=== PATIENT | female | born 1985 | race Caucasian/White ===

== ENCOUNTER 2024-09-14 17:19 | Observation (INO) ==
--- NOTE | 2024-09-14 17:47 | Emergency Department Note ---
Impression & Plan Heart palpitations, Headache ED Provider Note HISTORY OF PRESENT ILLNESS: Patient is a 39-year-old female presenting with multiple complaints. Patient reports that today while laying flat she had the sensation that her heart was racing. Reports that her palpitations lasted for about 2 hours and then went away on its own. States that over the last 4 to 6 weeks she has been having a number of symptoms, including headaches, numbness in her left arm, excessive weight gain and excessive fatigue. Reports that the weight gain has been ongoing for the last year but notably worse in the last few months. States that she also has been having excessive amounts of hair loss in the last year, most notably in the last few months. States that she has gained over 20 pounds in the last year without any significant changes to diet or exercise regimen. She reports that her father and sister both have multiple sclerosis. Patient denies any excessive caffeine use or any changes to medications. She denies any recent travel. Denies any DVT or PE history. Denies any chest pain or shortness of breath. She reports that her headaches have become more frequent in the last 4 to 6 weeks. Describes it as a pressure-like sensation and states that she takes [id number] Excedrin with minimal relief in symptoms. Denies any changes in vision, such as double or blurry vision. Denies any notable rashes. ROS: as above PHYSICAL EXAM: Constitutional: Patient appears in no acute distress. Tearful on examination HENT: Head: Normocephalic and atraumatic. Eyes: EOMI, PERRL Mouth/Throat: Mucous membranes moist. Neck: Trachea midline. Neck supple. Cardiovascular: RRR, No murmurs, rubs or gallops. Intact distal pulses. Pulmonary/Chest: No respiratory distress. Breath sounds clear and equal bilaterally. No wheezes or rales. Abdominal: Abdomen soft, no tenderness, rebound or guarding. Musculoskeletal: No edema, tenderness or deformity noted. Skin: Warm and dry. No rash, erythema, pallor or cyanosis Psychiatric: Appropriate mood and affect for situation. Neurological: Alert and keenly responsive. CN II-XII grossly intact, moving all extremities equally and fully. MDM: - Vitals signs stable. - History obtained via patient. History as above. - Chronic conditions affecting care: Depression with anxiety - Differential diagnoses include, but are not limited to: Multiple sclerosis; electrolyte abnormality; ACS; dysrhythmia; paresthesias - Order placed for continuous cardiac monitoring. At this time, monitor showed rate of 80 bpm with normal sinus rhythm, per my interpretation. - External medical records reviewed. - EKG image interpreted by myself showed normal sinus rhythm. Rate 83 bpm. QT 382. No acute ischemic changes. - Laboratory workup interpreted by myself showed normal WBC; normal PT/INR; normal D-dimer; stable electrolytes; normal troponin; normal lipase; normal TSH; negative hCG; negative Lyme/anaplasmosis/Babesia testing - CT head wo contrast negative for acute pathology - CXR image reviewed by myself is negative for pneumonia, per my interpretation. - MRI brain w/wo contrast was obtained, given patient's headache symptoms and intermittent left upper extremity numbness and family history of multiple sclerosis. MRI brain w/wo contrast showed no acute infarctions or hematomas. Noted to have "altered deep white matter signals with anatomical distribution imaging features concerning for potential multiple sclerosis." - Discussion was had with showcase trimmer about patient's case and need for admission - Hospitalist, Dr. Floyd, consulted for admission - [facility] ASSESSMENT AND PLAN: Diagnosis: Palpitations; headaches Plan: Admit Past Med/Surg History Problem List (Updated 09/14/24 @ 22:54 by Anette Farris MD) Headache (Acute) Heart palpitations (Acute) Breast pain Depression with anxiety Medical History Preeclampsia at 31 weeks Atypical squamous cells of undetermined significance (ASC-US) on cervical Pap smear 08/2020 Gestational diabetes Anorexia Surgical History S/P section di/di twin History of colposcopy 08/2020 S/P wisdom tooth extraction Family History Aunt Breast cancer Father Multiple sclerosis Other Dyslipidemia Hypertension Osteoporosis Social History Smoking Status: Never smoker Do You Dip or Chew Tobacco: No; Hx Alcohol Use: No Hx Substance Use: No Preferred Language: Persian marital status: marital status details: Shahriar (36) [phone] Current Living Situation: Spouse Current Living Situation Comment: lives with spouse, no pets current occupational status: employed 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 Feels Safe at Home: Yes Allergies Allergies Allergy/AdvReac Type Severity Reaction Status Date / Time No Known Allergies Allergy Verified 09/14/24 19:20 Home Meds Home Medications Medication Instructions Recorded Confirmed metoprolol succinate 50 mg 50 mg PO DAILY 09/17/20 09/14/24 tablet,extended release 24 hr trazodone 150 mg tablet 150 mg PO DAILY 11/07/21 09/14/24 minoxidil 2.5 mg tablet 1.25 mg PO DAILY 10/30/23 09/14/24 sertraline 100 mg tablet (Zoloft) 250 mg PO DAILY 10/30/23 09/14/24 bupropion HCl 150 mg 24 hr tablet, 150 mg PO QPM 09/14/24 09/14/24 extended release lisinopril 5 mg tablet 5 mg PO DAILY 09/14/24 09/14/24 multivitamin 1 tab PO DAILY 09/14/24 09/14/24 Previous Rx's Medication Instructions Recorded acetone (urine) test (Ketostix #100 ea 04/05/20 strips) drospirenone (contraceptive) 4 mg 1 tab PO DAILY #84 tabs 11/16/23 (28) tablet (Slynd) Results & Data (ED) Vital Signs Vital Signs - 24 hr 09/14/24 17:21 09/14/24 18:01 09/14/24 19:24 Temperature 36.6 C Temperature Source Temporal Artery Scan Pulse Rate 87 85 Pulse Rate [Apical] 80 Respiratory Rate 18 18 Respiratory Effort / Characteristics Non-Labored Spontaneous Respiratory Depth Normal Blood Pressure 125/77 Blood Pressure [Right Arm] 116/73 Blood Pressure Mean 93 Blood Pressure Mean [Right Arm] 87 Blood Pressure Position Sitting Pulse Oximetry 98 95 Oxygen Delivery Method Room Air Room Air Sepsis Recent Fever Within 48 Hours No Sepsis New/Unexplained Change in Mental Status No Sepsis Action Taken by Nursing No Action Required 09/14/24 21:00 Temperature Temperature Source Pulse Rate Pulse Rate [Apical] 80 Respiratory Rate 18 Respiratory Effort / Characteristics Respiratory Depth Blood Pressure Blood Pressure [Right Arm] 128/83 Blood Pressure Mean Blood Pressure Mean [Right Arm] 98 Blood Pressure Position Pulse Oximetry 97 Oxygen Delivery Method Sepsis Recent Fever Within 48 Hours Sepsis New/Unexplained Change in Mental Status Sepsis Action Taken by Nursing Laboratory Data 09/14/24 17:37 09/14/24 17:37 Lab Results 09/14/24 Range/Units 17:37 WBC 7.70 (4.8-10.8) K/ul RBC 4.00 L (4.20-5.40) M/uL Hgb 12.3 (12.0-16.0) g/dl Hct 35.1 L (37.0-47.0) % MCV 87.8 (80.0-100.0) fL MCH 30.8 (25.0-34.0) pg MCHC 35.0 (32.0-36.0) g/dL RDW Std Deviation 38.2 (36.4-46.3) fL RDW Coeff of Bruce 11.8 (11.5-14.5) % Plt Count 200 (130-400) K/uL MPV 9.6 (9.4-12.4) fL Immature Gran % (Auto) 0.3 % Neut % (Auto) 69.2 % Lymph % (Auto) 23.5 % Grant % (Auto) 5.7 % Eos % (Auto) 0.8 % Baso % (Auto) 0.5 % Neut # (Auto) 5.33 (1.40-6.50) K/uL Lymph # (Auto) 1.81 (1.20-3.40) K/uL Grant # (Auto) 0.44 (0.11-0.59) K/uL Eos # (Auto) 0.06 (0.00-0.50) K/uL Baso # (Auto) 0.04 (0.00-0.20) K/uL Immature Gran # (Auto) 0.02 (0.01-0.20) K/uL PT 10.0 (9.0-12.0) Seconds INR 0.9 (0.9-1.1) D-Dimer 390 (0-500) ug/L FEU Sodium 137 (136-145) mmol/L Potassium 4.1 (3.5-5.1) mmol/L Chloride 105 (98-107) mmol/L Carbon Dioxide 25 (21-32) mmol/L Anion Gap 7 (3-11) BUN 16 (6-23) mg/dl Creatinine 1.06 (0.6-1.2) mg/dl Est Cr Clr Drug Dosing 82.6 ml/min eGFR 68.11 BUN/Creatinine Ratio 15.1 (10-20) Glucose 146 H (70-99(Fasting)) mg/dl Calcium 9.4 (8.6-10.3) mg/dl Magnesium 2.0 (1.7-2.4) mg/dl Total Bilirubin 0.2 (0.2-1.0) mg/dl AST 17 (13-39) U/L ALT 22 (7-52) U/L Alkaline Phosphatase 74 (34-104) U/L Troponin I High Sens < 2.3 (0-14) pg/ml Total Protein 7.6 (6.0-8.3) gm/dl Albumin 4.3 (3.4-5.0) gm/dl Globulin 3.3 (2.5-4.0) gm/dl Albumin/Globulin Ratio 1.3 (0.9-2) Lipase 37 (11-82) U/L TSH 0.981 (0.300-4.500) uIu/ml HCG, Qual Negative (Negative) Anaplasma Smear See Comment Babesia Smear See Comment Lyme Disease Screen Negative (Negative) Administered Medications Discontinued Medications Gadobutrol (Gadobutrol 65ml Vial) 9.2 ml IV ONCE ONE Stop: 09/14/24 18:58 Last Admin: 09/14/24 18:58 Dose: 9.2 ml Documented By: GILSON Lorazepam (Lorazepam 2 Mg/1 Ml Vial) 0.5 mg IV NOW STA Stop: 09/14/24 18:18 Last Admin: 09/14/24 18:24 Dose: 0.5 mg Documented By: ARTEMIO Imaging Data Radiologist's Impression: Chest X-Ray 09/14/24 17:27 Clinical History: Palpitations Technique: A frontal view of the chest was obtained Comparison is made to the prior examination dated 01/29/2017 Findings: There are no confluent pulmonary infiltrates. The heart size is within normal limits. No pleural effusion or pneumothorax is seen. There is no definite pulmonary nodule. No fracture is noted. No foreign body is seen Impression: No active disease Electronically signed by Zi Connors 09-14-2024 6:59 PM Brain MRI 06/18/25 17:43 EXAM: MR brain wo/w con CLINICAL HISTORY: Headaches; Left arm numbness; history of MS. TECHNIQUE: Different pulse sequences were performed in different planes without and with GD-DTPA injection for the brain. 9.2 mL Gadavist was injected intravenously without complications. Images were sent through PACs for interpretation. COMPARISON: CT brain dated 09/14/2024 FINDINGS: No hyperacute or acute infarctions could be detected. Focal deep white matter, signal alterations are seen at the left forceps minor, right, periventricular, and forceps major regions, exhibiting bright signals on T2 and FLAIR WI. Intermediate signals on T1 WI. No appreciable enhancement after Gd-DTPA injection. Normal MRI appearance of the cerebellar parenchymal signals. Normal MRI appearance of the central granado matter aggregates. Normal size and configuration of the cerebral ventricles. Normal MRI appearance of different anatomical parts of the brain stem, namely the midbrain, jennifer, and medulla oblongata. Normal MRI appearance of the petrous temporal bones, brainstem, vestibule cochlear nerves, and cerebellopontine angles with no definite masses. No shift of midline structures. No intracerebral or extra-axial hematomas or masses. Normal MRI appearance of orbital structures, both globes, optic nerves, optic chiasm, optic tracts, and optic radiations. Retention cysts are seen at the maxillary antra. Other paranasal sinuses are clear. Hypertrophic nasal turbinates. IMPRESSION: 1. No hyperacute or acute infarctions could be depicted. 2. No intracerebral or extracerebral hematoma. 3. Altered deep white matter signals with anatomical distribution and imaging features may match the given clinical status of multiple sclerosis. Comparison with the prior scans is recommended for proper monitoring of the disease process. 4. CT is insensitive to mild, demyelinating disease. The comparison matches the CT findings. Electronically signed by Lorne Rose 09-14-2024 8:[address] 09/14/24 17:43 Clinical History: Headache and left arm numbness. Technique: Axial computed tomography images were obtained of the brain from the vertex to the skull base without intravenous contrast. Findings: There is no sign of intracranial hemorrhage. There is normal granado-white matter differentiation with no sign of acute or old infarction. No midline shift or other form of herniation is identified. There is no hydrocephalus. No obvious mass lesion is seen on this noncontrast examination. The visualized portions of the orbits and paranasal sinuses appear unremarkable. The mastoid air cells appear clear Impression: Unremarkable noncontrast CT of the brain Electronically signed by Zi Connors 09-14-2024 7:28 PM Discharge Plan Visit Data Chief Complaint: Tachycardia Stated Complaint: TACHYCARDIA, SOME TINGLING OF LIMBS AND HEADACHE ED Provider: Anette Farris Discharge Problem: Heart palpitations, Headache Condition: Fair Forms Stand Alone Forms: My [facility] Prescriptions Prescriptions: No Action metoprolol succinate 50 mg tablet extended release 24 hr 50 mg PO DAILY trazodone 150 mg tablet 150 mg PO DAILY (DME) Ketostix Strip See Rx Instructions .ROUTE .MEDSUPPLY Qty: 100 2RF Rx Instructions: Check each morning Slynd 4 mg (28) tablet 1 tab PO DAILY Qty: 84 3RF sertraline [Zoloft] 100 mg tablet 250 mg PO DAILY minoxidil 2.5 mg tablet 1.25 mg PO DAILY multivitamin Tablet 1 tab PO DAILY lisinopril 5 mg tablet 5 mg PO DAILY bupropion HCl 150 mg tablet extended release 24 hr 150 mg PO QPM Referrals Referrals: Roxann Zhou CRNP [Primary Care Provider] -
[2024-09-14 17:51] LABS: Basophils # (auto) 0.04 K/uL (0.00-0.20); Basophils % (auto) 0.5 %; Eosinophils # (auto) 0.06 K/uL (0.00-0.50); Eosinophils % (auto) 0.8 %; Hematocrit (blood only) 35.1 % (37.0-47.0); Hemoglobin 12.3 g/dl (12.0-16.0); Immature Granulocytes # (auto) 0.02 K/uL (0.01-0.20); Immature Granulocytes % (auto) 0.3 %; Lymphocytes # (auto) 1.81 K/uL (1.20-3.40); Lymphocytes % (auto) 23.5 %; Mean Corpuscular Hemoglobin 30.8 pg (25.0-34.0); Mean Corpuscular Volume 87.8 fL (80.0-100.0); Mean Platelet Volume 9.6 fL (9.4-12.4); Monocytes # (auto) 0.44 K/uL (0.11-0.59); Monocytes % (auto) 5.7 %; Neutrophils # (auto) 5.33 K/uL (1.40-6.50); Neutrophils % (auto) 69.2 %; Platelet Count 200 K/uL (130-400); RDW Coefficient of Variation 11.8 % (11.5-14.5); RDW Standard Deviation 38.2 fL (36.4-46.3)
[2024-09-14 18:06] LABS: Alanine Aminotransferase 22 U/L (7-52); Albumin Globulin Ratio 1.3 (0.9-2); Albumin Level 4.3 gm/dl (3.4-5.0); Alkaline Phosphatase 74 U/L (34-104); Anion Gap 7 (3-11); Aspartate Aminotransferase 17 U/L (13-39); BUN Creatinine Ratio 15.1 (10-20); Bilirubin,Total 0.2 mg/dl (0.2-1.0); Blood Urea Nitrogen 16 mg/dl (6-23); Calcium 9.4 mg/dl (8.6-10.3); Carbon Dioxide 25 mmol/L (21-32); Chloride 105 mmol/L (98-107); Creatinine Clr Calc Pharmacy 82.6 ml/min; Globulin 3.3 gm/dl (2.5-4.0); Glucose 146 mg/dl (70-99(Fasting)); Lipase 37 U/L (11-82); Potassium 4.1 mmol/L (3.5-5.1); Sodium 137 mmol/L (136-145); Total Protein 7.6 gm/dl (6.0-8.3)
[2024-09-14 18:11] LABS: Pregnancy Test, Serum Negative (Negative)
[2024-09-14 18:15] LABS: Troponin I High Sensitivity < 2.3 pg/ml (0-14)
[2024-09-14 18:18] LABS: D Dimer 390 ug/L FEU (0-500); INR 0.9 (0.9-1.1)
[2024-09-14 18:21] LABS: Thyroid Stimulating Hormone 0.981 uIu/ml (0.300-4.500)
[2024-09-14] MEDS: LORazepam 2 MG/1 ML VIAL IV STA (18:24)
[2024-09-14] MEDS: GADOBUTROL 65ML VIAL IV ONE (18:58)
--- NOTE | 2024-09-14 18:59 | XRay Report ---
Clinical History: Palpitations Technique: A frontal view of the chest was obtained Comparison is made to the prior examination dated 01/29/2017 Findings: There are no confluent pulmonary infiltrates. The heart size is within normal limits. No pleural effusion or pneumothorax is seen. There is no definite pulmonary nodule. No fracture is noted. No foreign body is seen Impression: No active disease Electronically signed by Zi Connors 09-14-2024 6:59 PM
--- NOTE | 2024-09-14 19:29 | CT Scan Report ---
Clinical History: Headache and left arm numbness. Technique: Axial computed tomography images were obtained of the brain from the vertex to the skull base without intravenous contrast. Findings: There is no sign of intracranial hemorrhage. There is normal granado-white matter differentiation with no sign of acute or old infarction. No midline shift or other form of herniation is identified. There is no hydrocephalus. No obvious mass lesion is seen on this noncontrast examination. The visualized portions of the orbits and paranasal sinuses appear unremarkable. The mastoid air cells appear clear Impression: Unremarkable noncontrast CT of the brain Electronically signed by Zi Connors 09-14-2024 7:28 PM
--- NOTE | 2024-09-14 20:09 | Magnetic Resonance Report ---
EXAM: MR brain wo/w con CLINICAL HISTORY: Headaches; Left arm numbness; history of MS. TECHNIQUE: Different pulse sequences were performed in different planes without and with GD-DTPA injection for the brain. 9.2 mL Gadavist was injected intravenously without complications. Images were sent through PACs for interpretation. COMPARISON: CT brain dated 09/14/2024 FINDINGS: No hyperacute or acute infarctions could be detected. Focal deep white matter, signal alterations are seen at the left forceps minor, right, periventricular, and forceps major regions, exhibiting bright signals on T2 and FLAIR WI. Intermediate signals on T1 WI. No appreciable enhancement after Gd-DTPA injection. Normal MRI appearance of the cerebellar parenchymal signals. Normal MRI appearance of the central granado matter aggregates. Normal size and configuration of the cerebral ventricles. Normal MRI appearance of different anatomical parts of the brain stem, namely the midbrain, jennifer, and medulla oblongata. Normal MRI appearance of the petrous temporal bones, brainstem, vestibule cochlear nerves, and cerebellopontine angles with no definite masses. No shift of midline structures. No intracerebral or extra-axial hematomas or masses. Normal MRI appearance of orbital structures, both globes, optic nerves, optic chiasm, optic tracts, and optic radiations. Retention cysts are seen at the maxillary antra. Other paranasal sinuses are clear. Hypertrophic nasal turbinates. IMPRESSION: 1. No hyperacute or acute infarctions could be depicted. 2. No intracerebral or extracerebral hematoma. 3. Altered deep white matter signals with anatomical distribution and imaging features may match the given clinical status of multiple sclerosis. Comparison with the prior scans is recommended for proper monitoring of the disease process. 4. CT is insensitive to mild, demyelinating disease. The comparison matches the CT findings. Electronically signed by Lorne Rose 09-14-2024 8:08 PM
--- NOTE | 2024-09-14 22:12 | History & Physical Report ---
Date of Service September 14, 2024 Assessment & Plan (1) Heart palpitations: (2) Headache: (3) Paresthesias: (4) cardiomyopathy: Plan This patient is a 39-year-old female with a history of cardiomyopathy, alopecia, depression/anxiety, remote history of anorexia, ge stational diabetes, and preeclampsia who presents to the ED with heart palpitations and a sensation of racing heartbeat that lasted 2 hours on the day of admission. This is in the context of some other more subacute to chronic symptoms over the last few months that include weight gain, significant fatigue, increasing frequency of tension headaches that have become almost daily over the last 6 weeks, and left upper extremity tingling mostly at night for the last 6 weeks. She also has noted some occasional mild chest pressure that comes on at rest and goes away on its own for the last 6 to 8 months that she thinks may be psychosomatic. With her headaches, they are only a 3/10 in severity, located in the frontal and temporal region, not associated with any nausea/vomiting or photophobia/phonophobia. She takes an Excedrin every couple of weeks for them but otherwise takes nothing for the headaches on a regular basis. Her only change in medication was that she was started on Slynd (progesterone only control pill) in 10/2023. She was seen by her PCP recently as an outpatient for the symptoms who thought she needed a sleep study to rule out BARBARA and was considering brain imaging given the increasing headaches and the left upper extremity tingling. The patient does have a strong family history in her father and 2 paternal aunts of MS and this is a concern of hers. She denies any visual changes. MRI of the brain performed in the ER interpreted as increased deep white matter signals which could be consistent with MS. She will be admitted for heart palpitations to assess for arrhythmia and repeat echocardiogram given history of cardiomyopathy which is now resolved. She will also be admitted for further evaluation by neurology to see if lumbar puncture warranted for further workup for MS and increased frequency of headaches. #Headaches/LUE numbness-headaches are tension headaches. No focal neurological deficits on exam and no papilledema noted on limited ophthalmic exam. CT head negative. MRI brain with/without contrast possible white matter changes consistent with MS. Her headaches I believe also could be related to changing to her progesterone only control pill but could also be tension headaches and weight gain. She has no neck pain and has paresthesias intermittently in the left upper extremity but no focal weakness. Could potentially have pseudotumor cerebri given gender, age, and obesity with daily headaches. Does have strong family history of MS although this typically is not hereditary. She does not have analgesia induced headaches or rebound headaches. Lyme titer negative, TSH normal - Tylenol as needed for headache -Check MRI cervical spine given left upper extremity paresthesias - Consult neurology for further assessment and to see if lumbar puncture warranted to further assess for MS and/or pseudotumor cerebri -Consider switching control to a different form to see if this helps relieve symptoms-discussed with gynecology outpatient - Check B12 level - Plans on getting outpatient sleep study to assess for BARBARA as a cause of her fatigue, headaches, weight gain #Heart palpitations/history of cardiomyopathy now resolved-occurred for 2 hours, unclear if related to ectopy or SVT. She does have a history of cardiomyopathy which was resolved on echo she thinks from 2 years prior. She follows with [facility] cardiology and remains on lisinopril and Toprol XL. She does not appear volume overloaded and blood pressures are controlled. TSH normal. CXR negative - Continue lisinopril, Toprol-XL - Check echo - Trend serial troponin - Monitor on telemetry for arrhythmia and asked nurse navigator to arrange 30- day cardiac event monitor through [facility] cardiology after discharge #Depression/anxiety/insomnia-no acute issues although she questions if some of her symptoms are psychosomatic - Continue home sertraline, bupropion, trazodone #Alopecia-she is on minoxidil for alopecia and not for hypertension - Continue minoxidil DVT prophylaxis-SCDs Disposition-bring in on observation for further neurological evaluation and echocardiogram, telemetry monitoring for arrhythmia, expect discharge on 09/15 most likely History of Present Illness Chief Complaint: Headache, heart palpitations, left arm numbness Primary Care Provider: GARRY Grajeda This patient is a 39-year-old female with a history of cardiomyopathy, alopecia, depression/anxiety, remote history of anorexia, gestational diabetes, and preeclampsia who presents to the ED with heart palpitations and a sensation of racing heartbeat that lasted 2 hours on the day of admission. This is in the context of some other more subacute to chronic symptoms over the last few months that include weight gain, significant fatigue, increasing frequency of tension headaches that have become almost daily over the last 6 weeks, and left upper extremity tingling mostly at night for the last 6 weeks. She also has noted some occasional mild chest pressure that comes on at rest and goes away on its own for the last 6 to 8 months that she thinks may be psychosomatic. With her headaches, they are only a 3/10 in severity, located in the frontal and temporal region, not associated with any nausea/vomiting or photophobia/phonophobia. She takes an Excedrin every couple of weeks for them but otherwise takes nothing for the headaches on a regular basis. Her only change in medication was that she was started on Slynd (progesterone only control pill) in 10/2023. She was seen by her PCP recently as an outpatient for the symptoms who thought she needed a sleep study to rule out BARBARA and was considering brain imaging given the increasing headaches and the left upper extremity tingling. The patient does have a strong family history in her father and 2 paternal aunts of MS and this is a concern of hers. She denies any visual changes. MRI of the brain performed in the ER interpreted as increased deep white matter signals which could be consistent with MS. She will be admitted for heart palpitations to assess for arrhythmia and repeat echocardiogram given history of cardiomyopathy which is now resolved. She will also be admitted for further evaluation by neurology to see if lumbar puncture warranted for further workup for MS and increased frequency of headaches. Allergies Allergy/AdvReac Type Severity Reaction Status Date / Time No Known Allergies Allergy Verified 09/14/24 19:20 Home Medications Medication Instructions Recorded Confirmed Type acetone (urine) test (Ketostix #100 ea 04/05/20 09/14/24 Rx strips) metoprolol succinate 50 mg 50 mg PO DAILY 09/17/20 09/14/24 History tablet,extended release 24 hr trazodone 150 mg tablet 150 mg PO DAILY 11/07/21 09/14/24 History minoxidil 2.5 mg tablet 1.25 mg PO DAILY 10/30/23 09/14/24 History sertraline 100 mg tablet (Zoloft) 250 mg PO DAILY 10/30/23 09/14/24 History drospirenone (contraceptive) 4 mg 1 tab PO DAILY #84 tabs 11/16/23 09/14/24 Rx (28) tablet (Slynd) bupropion HCl 150 mg 24 hr tablet, 150 mg PO QPM 09/14/24 09/14/24 History extended release lisinopril 5 mg tablet 5 mg PO DAILY 09/14/24 09/14/24 History multivitamin 1 tab PO DAILY 09/14/24 09/14/24 History Past Med/Surg History Problem List (Updated 09/15/24 @ 00:39 by Taryn Floyd MD) Paresthesias Headache (Acute) Heart palpitations (Acute) Breast pain Depression with anxiety Medical History Alopecia cardiomyopathy Preeclampsia at 31 weeks Atypical squamous cells of undetermined significance (ASC-US) on cervical Pap smear 08/2020 Gestational diabetes Anorexia Surgical History S/P section di/di twin History of colposcopy 08/2020 S/P wisdom tooth extraction Family History (Updated 09/15/24 @ 00:37 by Taryn Floyd MD) Aunt Breast cancer Multiple sclerosis Father Multiple sclerosis Brother Obsessive compulsive disorder Other Dyslipidemia Hypertension Osteoporosis Social History (Updated 09/15/24 @ 00:37 by Taryn Floyd MD) Smoking Status: Never smoker Do You Dip or Chew Tobacco: No; Hx Alcohol Use: Yes Alcohol Intake Frequency: Monthly or Less Hx Substance Use: No Preferred Language: Japanese marital status: marital status details: Shahriar (36) [phone] Current Living Situation: Spouse Current Living Situation Comment: lives with spouse, no pets current occupational status: employed 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, 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, 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 [employer] How many Children do You have: 2 How many Children do You have Comment: Twins Feels Safe at Home: Yes Review of Systems Review of Systems: All systems reviewed & are unremarkable except as noted in HPI & below Physical Exam Constitutional: WD/WN, vitals as above Eyes: PERRL, conjunctivae normal, anicteric sclerae no vascular abnormality, no optic disc abnormality, no anisocoria, no nystagmus and no papilledema ENMT: external ear and nose normal, oropharynx normal Neck: trachea midline, no thyromegaly Respiratory: normal respiratory effort, lungs clear to auscultation Cardiovascular: RRR, no murmur, no edema Chest (Breasts): Chest: normal inspection of chest Gastrointestinal (Abdomen): normal bowel sounds, soft, nontender, no hepatosplenomegaly Musculoskeletal: Extremities: extremities normal to inspection; no cyanosis and no clubbing Skin: no rashes, warm and dry Neurologic: normal touch/pain/proprioception (In upper and lower extremities bilaterally), CN's II-XI intact bilaterally, moves all extremities and awake; + abnormal deep tendon reflexes (1+ DTRs throughout upper and lower extremities bilaterally), no focal motor deficits, no meningeal signs and not confused Speech / Cognition: normal speech and normal cognition Motor/Sensory: no tremor and no sensory deficit Psychiatric: A+Ox3, euthymic affect Lymphatic: no lymphedema Results & Data Results & Data Vital Signs (Past 12 Hours) Vital Signs Temp Pulse Pulse Resp BP BP Pulse Ox 09/14/24 21:00 80 18 128/83 97 09/14/24 19:24 80 18 116/73 95 09/14/24 18:01 85 09/14/24 17:21 36.6 C 87 18 125/77 98 O2 Del Method 09/14/24 21:00 09/14/24 19:24 Room Air 09/14/24 18:01 09/14/24 17:21 Room Air Laboratory Results CBC, PT/INR, D-dimer, BMP, magnesium, LFTs, troponin, lipase, TSH, hCG, Anaplasma/Babesia smear, Lyme disease screen reviewed Diagnostic Findings CT head, brain MRI, chest x-ray reviewed: Chest X-Ray 09/14/24 17:27 Clinical History: Palpitations Technique: A frontal view of the chest was obtained Comparison is made to the prior examination dated 01/29/2017 Findings: There are no confluent pulmonary infiltrates. The heart size is within normal limits. No pleural effusion or pneumothorax is seen. There is no definite pulmonary nodule. No fracture is noted. No foreign body is seen Impression: No active disease Electronically signed by Zi Connors 09-14-2024 6:59 PM Brain MRI 09/14/24 17:43 EXAM: MR brain wo/w con CLINICAL HISTORY: Headaches; Left arm numbness; history of MS. TECHNIQUE: Different pulse sequences were performed in different planes without and with GD-DTPA injection for the brain. 9.2 mL Gadavist was injected intravenously without complications. Images were sent through PACs for interpretation. COMPARISON: CT brain dated 09/14/2024 FINDINGS: No hyperacute or acute infarctions could be detected. Focal deep white matter, signal alterations are seen at the left forceps minor, right, periventricular, and forceps major regions, exhibiting bright signals on T2 and FLAIR WI. Intermediate signals on T1 WI. No appreciable enhancement after Gd-DTPA injection. Normal MRI appearance of the cerebellar parenchymal signals. Normal MRI appearance of the central granado matter aggregates. Normal size and configuration of the cerebral ventricles. Normal MRI appearance of different anatomical parts of the brain stem, namely the midbrain, jennifer, and medulla oblongata. Normal MRI appearance of the petrous temporal bones, brainstem, vestibule cochlear nerves, and cerebellopontine angles with no definite masses. No shift of midline structures. No intracerebral or extra-axial hematomas or masses. Normal MRI appearance of orbital structures, both globes, optic nerves, optic chiasm, optic tracts, and optic radiations. Retention cysts are seen at the maxillary antra. Other paranasal sinuses are clear. Hypertrophic nasal turbinates. IMPRESSION: 1. No hyperacute or acute infarctions could be depicted. 2. No intracerebral or extracerebral hematoma. 3. Altered deep white matter signals with anatomical distribution and imaging features may match the given clinical status of multiple sclerosis. Comparison with the prior scans is recommended for proper monitoring of the disease process. 4. CT is insensitive to mild, demyelinating disease. The comparison matches the CT findings. Electronically signed by Lorne Rose 09-14-2024 8:[address] 09/14/24 17:43 Clinical History: Headache and left arm numbness. Technique: Axial computed tomography images were obtained of the brain from the vertex to the skull base without intravenous contrast. Findings: There is no sign of intracranial hemorrhage. There is normal granado-white matter differentiation with no sign of acute or old infarction. No midline shift or other form of herniation is identified. There is no hydrocephalus. No obvious mass lesion is seen on this noncontrast examination. The visualized portions of the orbits and paranasal sinuses appear unremarkable. The mastoid air cells appear clear Impression: Unremarkable noncontrast CT of the brain at 1731 with normal sinus rhythm, rate 83, no ischemic changes Code Status & VTE Plan Code Status Full code VTE Prophylaxis Plan VTE Prophylaxis will be ordered: Yes PG Care Time/CCT Total # of Minutes Spent Total Time Spent with Patient: Total time spent is greater than 50% in coordination of care (as documented) at patient's floor/unit and/or counseling patient: Coding Level of Care Code 18050 INT INP/OBS CARE 3/75MIN Diagnoses Heart palpitations R00.2 Headache R51.9 Paresthesias R20.2 cardiomyopathy O90.3
[2024-09-15] MEDS ORDERED: ACETAMINOPHEN 325 MG TAB PO PRN (01:06)
[2024-09-15] MEDS: METOPROLOL SUCC 50MG EXT REL TAB PO SCH (02:24)
[2024-09-15] MEDS: buPROPion XL 150 MG TABCR PO SCH (02:24)
[2024-09-15] MEDS: lisinopril 5 MG TAB PO SCH (02:24)
--- NOTE | 2024-09-15 08:49 | Neurology Consultation ---
Date of Consultation September 15, 2024 Assessment & Plan (1) Abnormal finding on MRI of brain: History of Present Illness Attending Physician: Ian Millan MD, PhD History of Present Illness S: pt comfortable. not having much pain/headache this morning. called to evaluate for mri brain report findings of nonspecific white matter lesions. dad with MS and she very worried about having MS. pt with hx of chronic anxiety and depression. admission HPI: This patient is a 39-year-old female with a history of cardiomyopathy, alopecia, depression/anxiety, remote history of anorexia, gestational diabetes, and preeclampsia who presents to the ED with heart palpitations and a sensation of racing heartbeat that lasted 2 hours on the day of admission. This is in the context of some other more subacute to chronic symptoms over the last few months that include weight gain, significant fatigue, increasing frequency of tension headaches that have become almost daily over the last 6 weeks, and left upper extremity tingling mostly at night for the last 6 weeks. She also has noted some occasional mild chest pressure that comes on at rest and goes away on its own for the last 6 to 8 months that she thinks may be psychosomatic. With her headaches, they are only a 3/10 in severity, located in the frontal and temporal region, not associated with any nausea/vomiting or photophobia/phonophobia. She takes an Excedrin every couple of weeks for them but otherwise takes nothing for the headaches on a regular basis. Her only change in medication was that she was started on Slynd (progesterone only control pill) in 10/2023. She was seen by her PCP recently as an outpatient for the symptoms who thought she needed a sleep study to rule out BARBARA and was considering brain imaging given the increasing headaches and the left upper extremity tingling. The patient does have a strong family history in her father and 2 paternal aunts of MS and this is a concern of hers. She denies any visual changes. MRI of the brain performed in the ER interpreted as increased deep white matter signals which could be consistent with MS. She will be admitted for heart palpitations to assess for arrhythmia and repeat echocardiogram given history of cardiomyopathy which is now resolved. She will also be admitted for further evaluation by neurology to see if lumbar puncture warranted for further workup for MS and increased frequency of headaches. Allergies Allergy/AdvReac Type Severity Reaction Status Date / Time No Known Allergies Allergy Verified 09/14/24 19:20 Home Medications Medication Instructions Recorded Confirmed Type acetone (urine) test (Ketostix #100 ea 04/05/20 09/14/24 Rx strips) metoprolol succinate 50 mg 50 mg PO DAILY 09/17/20 09/14/24 History tablet,extended release 24 hr trazodone 150 mg tablet 150 mg PO DAILY 11/07/21 09/14/24 History minoxidil 2.5 mg tablet 1.25 mg PO DAILY 10/30/23 09/14/24 History sertraline 100 mg tablet (Zoloft) 250 mg PO DAILY 10/30/23 09/14/24 History drospirenone (contraceptive) 4 mg 1 tab PO DAILY #84 tabs 11/16/23 09/14/24 Rx (28) tablet (Slynd) bupropion HCl 150 mg 24 hr tablet, 150 mg PO QPM 09/14/24 09/14/24 History extended release lisinopril 5 mg tablet 5 mg PO DAILY 09/14/24 09/14/24 History multivitamin 1 tab PO DAILY 09/14/24 09/14/24 History Patient History Medical History Alopecia cardiomyopathy Preeclampsia at 31 weeks Atypical squamous cells of undetermined significance (ASC-US) on cervical Pap smear 08/2020 Gestational diabetes Anorexia Surgical History S/P section di/di twin History of colposcopy 08/2020 S/P wisdom tooth extraction Family History (Updated 09/15/24 @ 00:37 by Taryn Floyd MD) Aunt Breast cancer Multiple sclerosis Father Multiple sclerosis Brother Obsessive compulsive disorder Other Dyslipidemia Hypertension Osteoporosis Social History (Updated 09/15/24 @ 00:37 by Taryn Floyd MD) Smoking Status: Never smoker Second Hand Exposure: No; Do You Dip or Chew Tobacco: No; Tobacco Cessation Education Requested by Patient: No Hx Alcohol Use: Yes Alcohol type: beer and wine Alcohol Intake Frequency: Monthly or Less Hx Substance Use: No Preferred Language: Bahamian Communication Ability: Effective Security Systems Manager Required: No Beliefs That Will Affect Care: None marital status: marital status details: Shahriar (36) [phone] Current Living Situation: Spouse and Family Current Living Situation Comment: lives with spouse, no pets current occupational status: employed 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 How many Children do You have: 2 How many Children do You have Comment: Twins Other Information That Helps Us Care for You: No Feels Safe at Home: Yes Safety Concerns: Feels Safe At This Time Assistive Devices: None Exam (Neuro) Physical Exam: HEENT: normocephalic grossly Neuro: Mental: AOx4, fluent speech, normal comprehension, no apraxia, no L/R confusion, no neglect CN: PERRL, Full EOM, symmetric face, Motor: No abnormal movements, normal tone, 5/5 t/o bilaterally Sens: intact to touch b/l grossly, including upper limbs. Coord: intact FNT b/l DTR: 2+ sym b/l Impression: 39 yo female with mri brain nonspecific white matter lesion in setting of anxiety and depression and family hx of MS. On my review of the mri brain, there is no suggestion of demyelinating or MS lesions. Very small nonspecific finding at the Forceps minor and major that is reported is not consistent with demyelinating lesions. Also her overall clinical picture is not consistent with that either. Recommendations: reassured pt. recommend f/u mri brain in 6 months. otherwise, no further work up for MS or pseudotumor cerebri needed. will sign off. call again if new question. Chart reviewed I have spent more than 50% educating patient about potential diagnosis and neurological evaluation and coordinating care with patient's treatment team. Total time spent (including chart review and coordination of care): 45 min (this includes chart review). Results & Data Vital Signs (Past 12 Hours) Vital Signs Temp Pulse Pulse Resp BP BP Pulse Ox 09/15/24 08:22 36.7 C 73 19 98/62 L 97 09/15/24 01:09 36.6 C 65 16 113/74 96 09/15/24 01:04 79 09/14/24 23:00 76 18 118/78 95 09/14/24 21:00 80 18 128/83 97 O2 Del Method 09/15/24 08:22 Room Air 09/15/24 01:09 Room Air 09/15/24 01:04 09/14/24 23:00 Room Air 09/14/24 21:00 PG Care Time/CCT Total # of Minutes Spent Total Time Spent with Patient: Total time spent is greater than 50% in coordination of care (as documented) at patient's floor/unit and/or counseling patient: Coding Level of Care Code 82089 IN/OBS CONSULT LVL 3,45M Diagnoses Abnormal finding on MRI of brain R90.89
[2024-09-15] MEDS: minoxidiL 2.5 MG TAB PO SCH (08:51)
[2024-09-15] MEDS: SERTRALINE HCL 100 MG TABLET PO SCH (08:53)
[2024-09-15] MEDS: MULTIVITAMIN TAB PO SCH (08:53)
[2024-09-15 09:00] LABS: D Dimer 310 ug/L FEU (0-500)
[2024-09-15 11:29] LABS: Adenovirus PCR Not Detected (NotDetected); Bordetella parapertussis PCR Not Detected (NotDetected); Bordetella pertussis PCR Not Detected (NotDetected); Chlamydia pneumoniae PCR Not Detected (NotDetected); Coronavirus 229E PCR Not Detected (NotDetected); Coronavirus CoV-2 (COVID19)PCR Not Detected (NotDetected); Coronavirus HKU1 PCR Not Detected (NotDetected); Coronavirus NL63 PCR Not Detected (NotDetected); Coronavirus OC43PCR Not Detected (NotDetected); Human Metapneumovirus PCR Not Detected (NotDetected); Influenza A PCR Not Detected (NotDetected); Influenza B PCR Not Detected (NotDetected); Mycoplasma pneumoniae PCR Not Detected (NotDetected); Parainfluenza Virus 1 PCR Not Detected (NotDetected); Parainfluenza Virus 2 PCR Not Detected (NotDetected); Parainfluenza Virus 3 PCR Not Detected (NotDetected); Parainfluenza Virus 4 PCR Not Detected (NotDetected); Respiratory Syncytial VirusPCR Not Detected (NotDetected); Rhinovirus/Enterovirus PCR Not Detected (NotDetected)
[2024-09-15 12:05] VITALS: RESP 18; TEMP 98.2; O2SAT 96
--- NOTE | 2024-09-15 12:45 | Discharge Summary ---
Discharge Summary Date of Service September 15, 2024 Principal Dx & Hospital Course #1 = Principal Diagnosis (1) Heart palpitations: (2) Headache: (3) Paresthesias: (4) cardiomyopathy: Plan 39 years old female with a PMH of FULL CODE @ home, obesity with BMI 32.1 (height 170.2 cm; weight 92.9 kg), alopecia areata on minoxidil 1.25mg PO daily, anxiety disorder on no anxiolytics, major depression on bupropion 150mg PO qpm and sertraline 100mg PO daily, insomnia disorder on trazodone 150mg PO daily, remote history of anorexia, gestational diabetes, preeclampsia, cardiomyopathy on metoprolol succinate 50mg PO daily and lisinopril 5mg PO daily, now on progestin-only, no estrogen control pill called drospirenone (Slynd) 4mg PO daily since October 2023, who presented to [facility] ER on 09/14/2024 with complaints of heart palpitations (e.g., sensation of racing heartbeat that lasted 2 hours on the day of admission (e.g., 09/14/2024)). These hear palpitations occurred in the context of some other more subacute to chronic symptoms over the last few months that include weight gain, significant fatigue, increasing frequency of tension headaches that have become almost daily over the last 6 weeks, and left upper extremity tingling mostly at night for the last 6 weeks. Patient also has noted some occasional mild chest pressure that comes on at rest and goes away on its own, over the last 6 to 8 months, and which the patient believes may be psychosomatic. With regards to her tension headaches, patient rates them as (a) 3/10 in terms of severity, (b) located in the frontal and temporal region, (c) not associated with any nausea/vomiting or photophobia/phonophobia. To relieve herself of these tension headaches, patient reports that she takes an Excedrin every couple of weeks, but otherwise takes nothing for the headaches on a regular basis. In addition, patient reports that the only change in medication was that she was started on progestin-only, no estrogen control pill called drospirenone (Slynd)) in October 2023 and does not smoke tobacco. Patient was seen by her PCP GARRY Yepez, recently as an outpatient for the symptoms who thought she needed a sleep study to rule out BARBARA and was considering brain imaging given the increasing headaches and the left upper extremity tingling. Of note, the patient does have a strong family history of multiple sclerosis in her father and 2 paternal aunts, and this family history of multiple sclerosis troubles the patient on a daily basis. However, patient emphatically denies any visual changes. Subsequently, MRI brain with/without contrast (09/14/2024, 5:43pm) performed in [facility] ER revealed non-specific "altered deep white matter signals with anatomical distribution and imaging features may match the given clinical status of multiple sclerosis. Comparison with the prior scans is recommended for proper monitoring of the disease process." Patient was subsequently placed in OBSERVATION on the hospitalist service @ [facility] on 09/14/2024 with the following diagnosis: 1. Heart palpitations of unclear etiology, weight gain of unclear etiology, significant fatigue of unclear etiology, increasing frequency of tension headaches of unclear etiology, left upper extremity tingling of unclear etiology: R/O multiple sclerosis. The following medical issues were addressed while the patient remained in [facility] from 09/14/2024 through 09/15/2024: #Heart palpitations of unclear etiology, in the setting of prior cardiomyopathy, which resolved about 2 years ago as per patient's report. Palpitations occurred for ~2 hours on observation date 09/14/2024; unclear if these palpitations are related to ectopy or SVT. Patient follows with [facility] and remains asymptomatic on metoprolol succinate 50mg PO daiyl and lisinopril 5mg PO daily. Patient does not appear volume overloaded and blood pressures are well-controlled. EKG (09/14/2024, 5:31pm): NSR @ 83, CA 180, QTC 448, no acute ST depressions/elevations, TWI, or q waves (by my review). quality assurance monitor chassis showed no arrhythmias overnight. Screening TSH normal at 0.981 uIU/mL (09/14/2024, 5:37pm). Portable CXR (09/14/2024, 5:27pm) revealed no infiltrate, effusion, cardiomegaly, pulmonary vascular congestion, or pneumothorax (by my review). Patient was subsequently advised to speak with her PCP Ms. Roxann Schrack, DRIVER [employer], to arrange outpatient 30-day cardiac event monitor through her [facility] after hospital discharge back to her home on 09/15/2024. #Significant fatigue of unclear etiology, increasing frequency of tension headaches of unclear etiology, left upper extremity tingling of unclear etiology: R/O multiple sclerosis. Significant fatigue of unclear etiology; patient was advised to follow up with her PCP GARRY Yepez, to undergo outpatient sleep study to rule out undiagnosed BARBARA as a potential contributor to her significant fatigue. Screening TSH normal at 0.981 uIU/mL (09/14/2024, 5:37pm) makes hypothyroidism unlikely, even though hypothyroidism is frequently associated with significant fatigue. Patient's bifrontal/temporal headaches are consistent with tension headaches; temporal arteritis is unlikely to be causing her bifrontal/temporal headaches given patient's normal ESR 13 mm/hr (09/15/2024, 8:120am). I surmise that her bifrontal/temporal headaches are due to progestin-only, no estrogen control pill called drospirenone (Slynd)), which the patient started in October 2023. No focal neurological deficits on physical exam and no papilledema noted on limited ophthalmic exam. CT brain without contrast (09/14/2024, 5:43pm) is negative for acute bleed, mass, or midline shift. MRI brain with/without contrast (09/14/2024, 5:43pm) performed in [facility] ER revealed non-specific "altered deep white matter signals with anatomical distribution and imaging features may match the given clinical status of multiple sclerosis. Comparison with the prior scans is recommended for proper monitoring of the disease process." Patient was subsequently evaluated by Neurologist Dr. Denny Barrow on 09/15/2024, 8:44am, who opines that patient does not suffer from multiple sclerosis, either by clinical exam or by review of MRI brain with/without contrast (09/14/2024, 5:43pm). I concur; patient has no red color desaturation or ophthalmoplegia on eye exam and her deep tendon reflexes are not hyperacute in amplitude, as one might expect to see in a patient with multiple sclerosis. On a separate note, patient has no neck pain and no motor weakness of the bilateral extremities (upper and lower), with only intermittent, not constant, paresthesias intermittently in the left upper extremity. Movement or lack of movement does not precipitate or exacerbate her intermittent paresthesias in the left upper extremity. Patient does not drink alcohol or suffer from Thursday night palsy (caused by direct compression of the radial nerve in the axilla of an intoxicated individual whose hapless arm rests over the back of a chair for hours on end) of the left upper extremity. Patient was subsequently advised to follow up with her PCP GARRY Yepez, within 5-7 days of hospital discharge for repeat history taking of patient's complaints of intermittent paresthesias in the left upper extremity, as well as repeat physical exam. Other secondary issues include: #Depression/anxiety/insomnia-no acute issues although she questions if some of her symptoms are psychosomatic - Continue home-scheduled bupropion 150mg PO qpm, sertralline 100mg PO daily, trazodone 150mg PO daily. #Alopecia- Continue home-scheduled minoxidil 1.25mg PO daily. DVT prophylaxis-SCDs Disposition-FULL CODE @ home. ACLS was never performed. There were no adverse events noted with this hospitalization. Condition of patient remains fair. Patient was discharged back to her home and advised to follow up with her PCP GARRY Yepez, within 5-7 days of hospital discharge for routine follow up visit. Admission HPI Per Admitting Provider This patient is a 39-year-old female with a history of cardiomyopathy, alopecia, depression/anxiety, remote history of anorexia, gestational diabetes, and preeclampsia who presents to the ED with heart palpitations and a sensation of racing heartbeat that lasted 2 hours on the day of admission. This is in the context of some other more subacute to chronic symptoms over the last few months that include weight gain, significant fatigue, increasing frequency of tension headaches that have become almost daily over the last 6 weeks, and left upper extremity tingling mostly at night for the last 6 weeks. She also has noted some occasional mild chest pressure that comes on at rest and goes away on its own for the last 6 to 8 months that she thinks may be psychosomatic. With her headaches, they are only a 3/10 in severity, located in the frontal and temporal region, not associated with any nausea/vomiting or photophobia/phonophobia. She takes an Excedrin every couple of weeks for them but otherwise takes nothing for the headaches on a regular basis. Her only change in medication was that she was started on Slynd (progesterone only control pill) in 10/2023. She was seen by her PCP recently as an outpatient for the symptoms who thought she needed a sleep study to rule out BARBARA and was considering brain imaging given the increasing headaches and the left upper extremity tingling. The patient does have a strong family history in her father and 2 paternal aunts of MS and this is a concern of hers. She denies any visual changes. MRI of the brain performed in the ER interpreted as increased deep white matter signals which could be consistent with MS. She will be admitted for heart palpitations to assess for arrhythmia and repeat echocardiogram given history of cardiomyopathy which is now resolved. She will also be admitted for further evaluation by neurology to see if lumbar puncture warranted for further workup for MS and increased frequency of headaches. Discharge Exam Constitutional General: Comfortable, coherent, cooperative. Wide awake and alert. Not confused, lethargic, or obtunded. Patient speaks in complete, fluent, and articulate sentences without pause, interruption, cough, or wheeze. HEENT: NC/AT. EOMI, PERRL. No nystagmus, gaze paresis, anisocoria, miosis, mydriasis, hyphema, chemosis, scleral icterus, conjunctivitis, or pterygium. No otorrhea, no rhinorrhea. No pharyngeal discharge or erythema. Neck: Supple, no stridor, bruit, goiter, or hepatojugular reflux. Jugular venous pressure is estimated to be 8 cm above the sternal angle of Joe, which is typically 5 cm above the level of the right atrium. Hence, there is no jugular venous distention noted on 09/15/2024. Lymphatics: No pre-post auricular, anterior/posterior cervical, supraclavicular/infraclavicular, axillary, epitrochlear, or inguinal adenopathy. Chest: Symmetric rise and fall with respirations. Non-tender to palpation. Heart: RRR, S1 and S2 noted. No S3 or S4 summation gallop noted. No tripartite friction rub. Grade II/ early systolic murmur @ LLSB without radiation to the carotids, axilla, or back, and which remains invariant in regards to the respiratory cycle. Lungs: Clear to auscultation and percussion. No audible expiratory wheeze, egophony, pectoriloquy, increase in tactile fremitus, or flatness/dullness to percussion at the bases. Abdomen: Soft, non-tender, non-distended. No rebound, guarding, Mad[place]'s sign, or organomegaly. Bowel sounds auscultated in all 4 quadrants. Extremities: No clubbing, cyanosis, or edema. 2+ pedal pulses bilaterally. Skin: No exanthem or enanthem or decubitus ulcer. Neurology: Alert and oriented in regards to person, place, time, and situation. DTR+ and symmetric. 5/5 motor strength in all 4 extremities, both proximally and distally. No red color desaturation. No myoclonus, tremors, or tics. Urology: No randolph catheter. No urethral discharge. Psychiatry: Appropriate affect. Smiles occasionally. No homicidal/suicidal ideation. Discharge Plan Discharge Items Patient Disposition: Home - Self-Care Reason For Visit: HEART PALPITATIONS Discharge Diagnosis: anxiety disorder, major depression, tension headache Condition on Discharge: Fair Activity: Resume your previous activity Lifting: Gradually increase as tolerated Bathing: No limitations Sexual Activity: When tolerated Exercise/Sports: As tolerated Driving/Machine Use: No limitations Weightbearing: Full weightbearing Non-emergency contact: Primary Care Provider Call non-emergency contact if: you have any medication questions Follow-up/Referrals: Roxann Zhou CRNP [Primary Care Provider] - Diet: Heart Healthy Addtl Attending Provider Instructions: See your PCP GARRY Yepez, within 5-7 days for routine follow up visit. Pending Studies at Discharge: No Stand-Alone Forms: My I Had Cancer, Smoking Cessation Medications and DC Order Prescriptions: Continued metoprolol succinate 50 mg tablet extended release 24 hr 50 mg PO DAILY trazodone 150 mg tablet 150 mg PO DAILY (DME) Ketostix Strip See Rx Instructions .ROUTE .MEDSUPPLY Qty: 100 2RF Rx Instructions: Check each morning Slynd 4 mg (28) tablet 1 tab PO DAILY Qty: 84 3RF sertraline [Zoloft] 100 mg tablet 250 mg PO DAILY minoxidil 2.5 mg tablet 1.25 mg PO DAILY multivitamin Tablet 1 tab PO DAILY lisinopril 5 mg tablet 5 mg PO DAILY bupropion HCl 150 mg tablet extended release 24 hr 150 mg PO QPM Discharge Orders: Discharge Order (Routine); Ordered 09/15/24 Ordered By: Ian Millan Admission Data Admit Date/Time: 09/14/24 23:07 Attending Provider: Ian Millan Admit Provider: Taryn Floyd Primary Care Provider: Roxann Zhou Other Providers: Taryn Floyd; Denny Barrow Hospital Stay Data Consultations 09/14/24 21:42 ED Decision to Admit Stat 09/15/24 01:06 Consult Neurology Routine Diagnostic Imagining Performed 09/14/24 17:43 CT head/brain wo con Stat MRI Brain [MR brain wo/w con] Stat Pending Results Patient Have Any Pending Studies at Discharge: No Discharge Instructions Given to Patient (Per Discharging Provider) See your PCP GARRY Yepez, within 5-7 days for routine follow up visit. Total Time Total Time Spent Total Time Spent (In Minutes): 35 minutes. Of this time period, 19 minutes were spent in coordinating patient's discharge. Coding Level of Care Code 61088 INP/OBS DISCH >30 MIN Diagnoses Heart palpitations R00.2 Headache R51.9 Paresthesias R20.2 cardiomyopathy O90.3
[2024-09-15 12:50] VITALS: BP 113/74
[2024-09-15 14:45] VITALS: PULSE 63
--- NOTE | 2024-09-15 16:27 | XCELERA ---
[id number] \\[id number]
[2024-09-15] MEDS ORDERED: traZODone HCL 50 MG TAB PO SCH (21:00)
--- NOTE | 2024-09-15 21:56 | Electrocardiogram Report ---
Test Reason : Blood Pressure : */* mmHG Vent. Rate : 83 BPM Atrial Rate : 83 BPM P-R Int : 180 ms QRS Dur : 80 ms QT Int : 382 ms P-R-T Axes : 28 -2 31 degrees QTcB Int : 448 ms Poor data quality, interpretation may be adversely affected Normal sinus rhythm Minimal voltage criteria for LVH, may be normal variant ( R in aVL ) Nonspecific T wave abnormality Abnormal ECG No previous ECGs available Confirmed by eJffery Mccoy ([id number]) on 09/15/2024 9:56:01 PM Referred By: Confirmed By: Jeffery Mccoy
[2024-09-20 14:52] LABS: Babesia microti DNA Not Detected (Not Detected)
== END 2024-09-15 13:20 | disposition home or self-care (01) ==
LOC: 2W 17:19 → ED 17:19 → SUATTDRO 23:07 → 2W 09-15 00:59